=== PATIENT | male | born 1970 | race African-American/Black ===

== ENCOUNTER 2025-09-04 11:10 | Emergency (ER) | payer OTHER ==
[~2025-09-04] VITALS: Ht 170.2 cm; Wt 93.0 kg
[~2025-09-04 11:10] MED LIST: CARI350T PO
[2025-09-04 11:18] VITALS: BP 138/95; TEMP 98.2
[2025-09-04] MEDS ORDERED: IBUPROFEN 600 MG TABLET ONE (11:49)
[2025-09-04 11:52] VITALS: O2SAT 98
[2025-09-04] MEDS: IBUPROFEN 600 MG TABLET PO ONE (11:54)
== END 2025-09-04 11:55 | disposition home or self-care (01) ==
LOC: ER 11:21
DX: S13.4XXA Sprain of ligaments of cervical spine, initial encounter (principal); S33.5XXA Sprain of ligaments of lumbar spine, initial encounter; I10 Essential (primary) hypertension; V89.2XXA Person injured in unspecified motor-vehicle accident, traffic, initial encounter; Y93.89 Activity, other specified; Y92.410 Unspecified street and highway as the place of occurrence of the external cause; Y99.9 Unspecified external cause status